=== PATIENT | male | born 1980 | race Caucasian/White ===

== ENCOUNTER 2018-04-12 16:40 | Emergency (ER) | payer OTHER ==
[~2018-04-12] VITALS: Ht 170.2 cm; Wt 66.8 kg
[2018-04-12 17:19] VITALS: BP 144/69
[2018-04-12] MEDS ORDERED: ondansetron 4mg rapidly disintigrating tab PO ONE (19:15)
[2018-04-12] MEDS ORDERED: HYDROmorphone 1 mg/ml syringe IM ONE (19:15)
[2018-04-12] MEDS ORDERED: HYDR-4353 PO (19:17)
== END 2018-04-12 19:34 | disposition home or self-care (01) ==
LOC: ER 16:40
DX: S76.811A Strain of other specified muscles, fascia and tendons at thigh level, right thigh, initial encounter (principal); M79.604 Pain in right leg; F12.90 Cannabis use, unspecified, uncomplicated; Z87.891 Personal history of nicotine dependence; X50.1XXA Overexertion from prolonged static or awkward postures, initial encounter; Y93.43 Activity, gymnastics; Y92.39 Other specified sports and athletic area as the place of occurrence of the external cause; Y99.8 Other external cause status
CPT/HCPCS: 73700; 96372; 99284; J1170

== ENCOUNTER 2020-06-12 13:47 | Emergency (ER) | payer OTHER ==
[~2020-06-12] VITALS: Ht 170.2 cm; Wt 70.0 kg
[2020-06-12 13:59] VITALS: BP 110/66
[2020-06-12] MEDS ORDERED: TETanus/Pertussis (Acell)/Diphther VAC/PF (Tdap-Adult) 0.5ml syringe IMVAC ONE (16:30)
[2020-06-12] MEDS ORDERED: CEPH250T PO (16:45)
== END 2020-06-12 17:17 | disposition home or self-care (01) ==
LOC: ER 13:47
DX: S00.81XA Abrasion of other part of head, initial encounter (principal); L02.01 Cutaneous abscess of face; F12.90 Cannabis use, unspecified, uncomplicated; Z72.89 Other problems related to lifestyle; Z79.2 Long term (current) use of antibiotics; Z20.3 Contact with and (suspected) exposure to rabies; X58.XXXA Exposure to other specified factors, initial encounter; Y93.89 Activity, other specified; Y92.89 Other specified places as the place of occurrence of the external cause; Y99.8 Other external cause status
CPT/HCPCS: 90471; 90715; 99283

== ENCOUNTER 2020-12-11 14:07 | Emergency (ER) | payer OTHER ==
[~2020-12-11] VITALS: Ht 170.2 cm; Wt 68.2 kg
--- NOTE | 2020-12-11 16:36 | NUR ---
VENKAT AT BEDSIDE.
[2020-12-11] MEDS ORDERED: HYDR25SU32 RC (17:00)
[2020-12-11 17:23] VITALS: BP 108/57
== END 2020-12-11 17:26 | disposition home or self-care (01) ==
LOC: ER 14:09
DX: K64.4 Residual hemorrhoidal skin tags (principal); F12.90 Cannabis use, unspecified, uncomplicated; Z72.89 Other problems related to lifestyle; Z79.899 Other long term (current) drug therapy
CPT/HCPCS: 99282

== ENCOUNTER 2022-01-16 09:49 | Emergency (ER) | payer OTHER ==
[~2022-01-16] VITALS: Ht 170.2 cm; Wt 72.7 kg
[~2022-01-16 09:49] MED LIST: HYDR25SU32 RC
[2022-01-16 09:52] VITALS: BP 131/58
[2022-01-16] MEDS ORDERED: LIDOcaine/epinephrine/tetracaine TOPICAL sol 3 ML syringe TOP ONE (10:35)
[2022-01-16] MEDS ORDERED: LIDOcaine 1% 30ml preserv. free vial IJ ONE (11:50)
[2022-01-16] MEDS ORDERED: CEPH250T PO (12:44)
== END 2022-01-16 13:01 | disposition home or self-care (01) ==
LOC: ER 09:50
DX: S00.432A Contusion of left ear, initial encounter (principal); H60.12 Cellulitis of left external ear; F12.90 Cannabis use, unspecified, uncomplicated; Z72.89 Other problems related to lifestyle; Z87.19 Personal history of other diseases of the digestive system; Z79.899 Other long term (current) drug therapy; X58.XXXA Exposure to other specified factors, initial encounter; Y93.9 Activity, unspecified; Y92.89 Other specified places as the place of occurrence of the external cause; Y99.8 Other external cause status
CPT/HCPCS: 10060; 99283; J3490; J7030; A6449

== ENCOUNTER 2024-10-25 18:31 | Emergency (ER) | payer OTHER ==
[~2024-10-25] VITALS: Ht 170.2 cm; Wt 70.5 kg
--- NOTE | 2024-10-25 20:07 | Physician Documentation ---
History of Present Illness ~ Chief Complaint: Wound Stated Complaint: SINUS PAIN/INFECTION ON LEG Time Seen by MD: 18:47 Primary Medical Doctor: TOMMIE YAÑEZ Patient is seen today with complaints of a possible infected wound on his right lower extremity. Patient states that he was chopping wood and accidentally hit his right ny with the Axe or pick axe he was using. Patient states this occurred over two weeks ago. Patient denies any fevers or chills or chest pain or shortness of breath or abdominal pain nausea, vomiting, diarrhea. Patient has no other concern or complaint at this time. Tetanus within 5 years?: Yes Medication Reconciliation Allergies: Coded Allergies: No Known Allergies (Unverified , 10/25/24) Scheduled Hydrocortisone Acetate (Anusol-Hc), 1 SUPP RC Q12H Past Medical History Past Medical History: Hemorrhoids Past Surgical History: noncontributory Alcohol Use: Occasionally Drug Use: marijuana Lives with: Family Lives In: Home Occupation: employed Review of Systems Constitutional: Denies: chills, fever, weakness Eyes: Denies: pain, blurred vision ENT: Denies: ear pain, nose pain, throat pain, mouth pain Respiratory: Denies: cough, shortness of breath Cardiovascular: Denies: chest pain, palpitations Gastrointestinal: Denies: abdominal pain, nausea, vomiting Genitourinary: Denies: burning, dysuria Male Genitalia: Denies: penile discharge, testicular pain Neurological: Denies: headache, dizziness Musculoskeletal: Denies: pain, swelling Integumentary: Denies: rash, lesions Allergic/Immunologic: Denies: hives, itching Hematologic/Lymphatic: Denies: no symptoms reported Psychiatric: Denies: depression, anxiety Physical Exam Vital Signs: Temperature: 98.1, Source: Oral, Heart Rate: 91, Respiratory Rate: 18, BP: 128/74, Pulse Oximetry: 95, Weight: 70.450 Physical Exam General: Awake and Alert, no acute distress. HEENT: Conjunctiva pink, Sclera clear, Mucus Membranes moist. Neck: Supple without masses and tenderness. Resp: Unlabored. Lungs clear to auscultation bilaterally. Heart: Regular Rate and rhythm, normal S1 and S2 without murmur, rub or gallop. Extremities: No cyanosis,clubbing or edema. Skin: Patient on exam does have erythematous fluctuant mass on dorsum of or anterior surface of right ankle. There surrounding erythema and some induration and tenderness to palpation surrounding. There is a centralized scab without any current purulent drainage. Progress Results/Orders Results/Orders Completed Orders - MICA BRITO Sulfamethox/Trimetho. Ds Tab (Septra Ds (10/25/24 20:05) Vital Signs 10/25/24 18:36 Temp 98.1 Pulse 91 Resp 18 B/P (MAP) 128/74 Pulse Ox 95 Medical Decision Making Findings Patient is seen today with complaints of a possible infected wound on his right lower extremity. Patient states that he was chopping wood and accidentally hit his right ny with the Axe or pick axe he was using. Patient states this occurred over two weeks ago. Patient denies any fevers or chills or chest pain or shortness of breath or abdominal pain nausea, vomiting, diarrhea. Patient has no other concern or complaint at this time. Patient did receive Bactrim DS by mouth in the ED tonight. Prescription for Bactrim DS sent to patient's pharmacy. Patient will perform warm compress 3-4 times daily for 20-30 minutes each time. Patient was given wound dressing supplies and will change dressing daily. Patient will return to ED with any worsening, concerning or changing symptoms. Departure Disposition: 01 HOME / SELF CARE / HOMELESS Impression: Primary Impression: Wound abscess Condition: Stable Discharge Instructions: Skin Abscess Referrals: NO PRIMARY CARE PROVIDER (PCP) Prescriptions Sulfamethoxazole/Trimethoprim (Bactrim Ds Tablet) 800 Mg-160 Mg Tablet 1 TAB PO Q12H for 10 Days, #20 TAB Prov: MICA BRITO 10/25/24 Signature Scribe Signature: No scribe Attestation: No scribe MICA BRITO October 25, 2024 20:07
[2024-10-25] MEDS ORDERED: SULF1TAB49 PO (20:33)
[2024-10-25] MEDS: sulfamethoxazole/trimethoprim DS (800/160mg) tablet PO STA (20:47)
[2024-10-25 20:57] VITALS: BP 119/68; PULSE 79; RESP 16; TEMP 98.1; O2SAT 98
== END 2024-10-25 21:00 | disposition home or self-care (01) ==
LOC: ER 18:33
DX: L02.415 Cutaneous abscess of right lower limb (principal)
CPT/HCPCS: 99283

== ENCOUNTER 2024-11-11 23:17 | Emergency (ER) | payer OTHER ==
[~2024-11-11] VITALS: Ht 170.2 cm; Wt 80.0 kg
[2024-11-11 23:24] VITALS: BP 132/76; PULSE 86; RESP 18; TEMP 98.2; O2SAT 98
--- NOTE | 2024-11-11 23:49 | Physician Documentation ---
History of Present Illness ~ Chief Complaint: Anxiety Stated Complaint: "AIR WAY FEELS CLOGGED" Primary Medical Doctor: TOMMIE YAÑEZ This is a 44-year-old male presenting with concern for difficulty breathing, patient is speaking in full sentences reporting that his throat feels like it is closing for the past several hours. Medication Reconciliation Allergies: Coded Allergies: No Known Allergies (Unverified , 10/25/24) Scheduled Hydrocortisone Acetate (Anusol-Hc), 1 SUPP RC Q12H Discontinued Medications Sulfamethoxazole/Trimethoprim (Bactrim Ds Tablet), 1 TAB PO Q12H Discontinued Reason: Auto Discontinued Past Medical History Past Medical History: Hemorrhoids Past Surgical History: noncontributory Alcohol Use: Occasionally Drug Use: marijuana Lives with: Family Lives In: Home Occupation: employed Physical Exam Vital Signs: Temperature: 98.2, Source: Temporal, Heart Rate: 86, Respiratory Rate: 18, BP: 132/76, Pulse Oximetry: 98, Weight: 80.000 Oxygen Flow Rate: 0 Physical Exam VITALS: Reviewed and as above. GENERAL: Alert, nontoxic appearing, no apparent distress. HEENT: RESPIRATORY: No increased work of breathing, no respiratory distress, speaking in full clear sentences, clear lung sounds in all ochoa, no stridor CHEST: CV: BACK: GI: MUSCULOSKELETAL: SKIN: NEURO: PSYCH: Anxious appearing Progress Results/Orders Results/Orders Vital Signs 11/11/24 23:24 Temp 98.2 Pulse 86 Resp 18 B/P (MAP) 132/76 Pulse Ox 98 O2 Flow Rate 0 Medical Decision Making Findings MSE performed in triage and patient returned to ED lobby by nursing staff, patient is hemodynamically stable without evidence of hypoxia Departure Referrals: NO PRIMARY CARE PROVIDER (PCP) GONZALO [facility] [employer] Nov 11, 2024 23:49
== END 2024-11-12 03:05 | disposition left against medical advice (07) ==
LOC: ER 23:18
DX: F41.9 Anxiety disorder, unspecified (principal); Z53.21 Procedure and treatment not carried out due to patient leaving prior to being seen by health care provider
CPT/HCPCS: 99281